=== PATIENT | male | born 1995 | race Caucasian/White ===

== ENCOUNTER 2017-09-24 16:57 | Emergency (ER) | payer MEDICAID, OTHER ==
[~2017-09-24] VITALS: Ht 165.1 cm; Wt 73.2 kg
[2017-09-24 17:08] VITALS: BP 123/63
== END 2017-09-24 18:51 | disposition home or self-care (01) ==
LOC: ER 17:33
DX: H60.93 Unspecified otitis externa, bilateral (principal); R51 Headache
CPT/HCPCS: 99283